=== PATIENT | male | born 1960 | race Caucasian/White ===

== ENCOUNTER → 2016-05-02 | Day surgery (SDC) | payer OTHER ==
[~2016-05-02] MED LIST: Buffered Lidocaine 1% SYR 3ML* 3 ML/SYR SYRINGE INTRADERM ONE; Buffered Lidocaine 1% SYR 3ML* 3 ML/SYR SYRINGE ONE; Lidocaine 1% INJ* 10 MG/ML 30 ML SDV ONE; Lidocaine 2% PF * 5 ML VIAL ONE; Midazolam* 1 MG/ML 2 ML VIAL (2 MG) ONE; Propofol* 10 MG/ML 20 ML BTL IV PUSH ONE
[2016-05-02 10:02] VITALS: BP 125/89
--- NOTE | 2016-05-02 23:36 | OP ---
DATE OF OPERATION: 05/02/16 [facility] DATE OF : 60 SURGEON: rKisten Steele MD SUBSURFACE AUGMENTEE OPERATOR: IRIS Porter ANESTHESIOLOGIST: Naveen Mireles DO ANESTHESIA: Local MAC. PRE-OP DIAGNOSIS: Left long finger mass. POST-OP DIAGNOSIS: Left long finger mass. OPERATIVE PROCEDURE: Remove, left long finger mass. ESTIMATED BLOOD LOSS: Zero. TOURNIQUET TIME: 20 minutes. INDICATIONS FOR PROCEDURE: Russell is a 56-year-old male with a mucous cyst on the dorsal aspect of his left long finger. It has drained several times. He presents now for removal. DESCRIPTION OF PROCEDURE: The patient was brought to the operating room, was given a sedation anesthetic and a digital block with 10 cc of 1% plain lidocaine. The skin of his left hand and forearm was prepped and draped in the usual sterile fashion. The hand and forearm were exsanguinated and the tourniquet elevated to 250 mmHg. An H-and-H shaped incision was made on the dorsal aspect of the DIP joint of the left long finger. We dissected sharply through the subcutaneous tissue and skin flaps were elevated over top of the ganglion cyst. The ganglion cyst was removed with a connection to the joint capsule. Extensor tendon was incised on either side and the underlying osteophytes removed with a rongeur. The wound was irrigated and the skin edges reapproximated with 4-0 nylon suture. The wound was dressed with Xeroform, 4x4 , Webril, and Corby wrap. The patient tolerated the procedure well and was brought to the recovery room in good condition. [id number]/[facility] #: [id number] [facility]uba
== END | disposition home or self-care (01) ==
LOC: OREAST 07:05
PROVIDERS: ATTEND Orthopaedic Surgery
DX: L72.0 Epidermal cyst (principal); I10 Essential (primary) hypertension
CPT/HCPCS: 88304; J2250; J2704